=== PATIENT | female | born 1980 | race Caucasian/White ===

== ENCOUNTER 2020-12-15 09:49 | Outpatient (CLI) | payer BC, SELFPAY ==
--- NOTE | 2020-12-15 10:01 | FL_ITS ---
WS: [id number] ESOPHAGRAM WITH FLUOROSCOPY HISTORY: DYSPHAGIA COMPARISON: None available. FLUOROSCOPY TIME: 1.5 minutes. 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 Esophagus and swallowing function: Patient swallowed the barium mixture without difficulty. No strict ures or mucosal abnormalities are identified. Gastroesophageal reflux: Moderate to the mukund. Hiatal hernia: Small reducible. FL/FL barium swallow [id number] IMPRESSION: 1. Small reducible hiatal hernia. 2. Moderate amount of gastroesophageal reflux to the mukund. 3. No strictures in the esophagus.
== END 2020-12-15 09:50 | disposition home or self-care (01) ==
LOC: RAD 09:55
PROVIDERS: Visit Provider Family Medicine
DX: R13.10 Dysphagia, unspecified (principal); K44.9 Diaphragmatic hernia without obstruction or gangrene; K21.9 Gastro-esophageal reflux disease without esophagitis
CPT/HCPCS: 74220

== ENCOUNTER → 2021-03-09 13:10 | Outpatient (BNVA) | payer BC, SELFPAY | PROVIDERS: PCP Family Medicine; Visit Provider Internal Medicine | DX: R76.8 Other specified abnormal immunological findings in serum (principal); M54.5 Low back pain; M35.00 Sjogren syndrome, unspecified; R53.1 Weakness; R21 Rash and other nonspecific skin eruption; Z11.59 Encounter for screening for other viral diseases | CPT/HCPCS: 99204 ==

== ENCOUNTER 2021-03-26 11:32 | Outpatient (CLI) | payer BC, SELFPAY ==
--- NOTE | 2021-03-26 11:41 | XR_ITS ---
WS: [id number] RIGHT HAND: 2 VIEW(S) TECHNIQUE: PA and lateral. HISTORY: R76.8 - Other specified abnormal immunological findings, chronic pain. COMPARISON: None available. No acute fracture or dislocation. No soft tissue or bone abnormality. XR/XR hand RT 2V [id number] IMPRESSION: Normal RIGHT hand.
--- NOTE | 2021-03-26 11:41 | XR_ITS ---
WS: [id number] LUMBAR SPINE: 3 VIEWS TECHNIQUE: AP, lateral and L5-S1 spot. HISTORY: R76.8 - Other specified abnormal immunological findings COMPARISON: None available. Lumbar vertebra are normally aligned. No loss of disc space or vertebral body height. Mild facet joint arthritis at L4-5 and L5-S1. Pedicle s are all identified. SI joints are symmetric bilaterally. No soft tissue abnormalities. Prior cholecystectomy. XR/XR lumbar spine 2-3V* [id number] IMPRESSION: Mild facet joint arthritis at L4-5 and L5-S1.
--- NOTE | 2021-03-26 11:41 | XR_ITS ---
WS: [id number] SACROILIAC JOINTS TECHNIQUE: AP and oblique imaging is submitted. HISTORY: L40.9 - Psoriasis, unspecified COMPARISON: None available. Normal appearance of the SI joints with no sclerosis or erosions. No bone destruction. No soft tissue abnormality. XR/XR sacroiliac jts m 3V [id number] IMPRESSION: Normal SI joints.
--- NOTE | 2021-03-26 11:41 | XR_ITS ---
WS: [id number] LEFT HAND: 2 VIEW(S) TECHNIQUE: PA and lateral. HISTORY: R76.8 - Other specified abnormal immunological findings COMPARISON: None available. No acute fracture or dislocation. No soft tissue or bone abnormality. XR/XR hand LT 2V [id number] IMPRESSION: Normal LEFT hand.
[2021-03-26 12:52] LABS: Add Urine Microscopic? NO; Charge for UA Resulting for Rev
[2021-03-26 13:11] LABS: Bilirubin Urine Neg (Negative); Blood Urine Neg (Negative); Glucose Urine UA Norm (Normal); Ketones Urine Negative (Negative); Leukocyte Esterase Urine Negative (Negative); Nitrate Urine Negative (Negative); Protein Urine Neg (Negative); Urine Appearance Clear (CLEAR); Urine Color Straw (Yellow); Urobilinogen Urine Neg (Negative); pH Urine 5 (5-7)
[2021-03-26 13:39] LABS: Ferritin 94 ng/mL (15-150); Magnesium 1.9 mg/dL (1.7-2.3)
[2021-03-26 14:03] LABS: Hepatitis B Core AB, Total Non-Reactive (Nonreactive); Hepatitis B Surface Antigen Non-Reactive (Nonreactive); Hepatitis C Virus Antibody Non-Reactive (Nonreactive)
[2021-03-27 11:07] LABS: COMPLEMENT, TOTAL (CH50) >60 U/mL (31-60)
[2021-03-27 11:33] LABS: COMPLEMENT COMPONENT C3C 163 mg/dL (83-193); COMPLEMENT COMPONENT C4C 20 mg/dL (15-57)
[2021-03-27 12:57] LABS: CENTROMERE B ANTIBODY <1.0 NEG AI (<1.0 NEG); JO-1 ANTIBODY <1.0 NEG AI (<1.0 NEG); RNP ANTIBODY <1.0 NEG AI (<1.0 NEG); SCL-70 ANTIBODY <1.0 NEG AI (<1.0 NEG); SJOGREN'S ANTIBODY (SS-A) <1.0 NEG AI (<1.0 NEG); SM ANTIBODY <1.0 NEG AI (<1.0 NEG); SS-B <1.0 NEG AI (<1.0 NEG)
[2021-03-27 14:07] LABS: Lymes IGG WB <0.90 index
[2021-03-27 14:17] LABS: Cyclic Citrullinated Peptide <16 UNITS
[2021-03-30 14:58] LABS: THYROID PEROXIDASE ANTIBODIES 1 IU/mL (<9)
[2021-03-31 15:37] LABS: Tissue Transglutaminase IgA Ab <1 U/mL; Tissue transglutaminase Ab.IgG <1 U/mL
[2021-03-31 15:47] LABS: ANA SCREEN, IFA POSITIVE (NEGATIVE)
[2021-03-31 15:52] LABS: ANA PATTERN Nuclear, Homogeneous
[2021-04-02 15:52] LABS: Gliadin Ab.IgA 3 U (<20); Gliadin Ab.IgG 3 U (<20)
[2021-04-02 23:08] LABS: Immunoglobulin A 102 mg/dL (47-310)
[2021-04-03 08:58] LABS: DNA AB (DS) CRITHIDIA,IFA NEGATIVE (NEGATIVE)
== END 2021-03-26 11:33 | disposition home or self-care (01) ==
PROVIDERS: PCP Family Medicine; Visit Provider Internal Medicine
DX: L40.9 Psoriasis, unspecified (principal); R76.8 Other specified abnormal immunological findings in serum; Z11.59 Encounter for screening for other viral diseases
CPT/HCPCS: 72100; 72202; 73120; 81003; 82728; 82784; 83516; 83735; 86160; 86162; 86235; 86255; 86376; 86617; 86704; 86803; 87340

== ENCOUNTER → 2021-07-08 13:05 | Outpatient (BNVA) | payer BC, SELFPAY | PROVIDERS: PCP Family Medicine; Visit Provider Internal Medicine | DX: R76.8 Other specified abnormal immunological findings in serum (principal); R53.1 Weakness; M25.50 Pain in unspecified joint; M54.50 Low back pain, unspecified; M54.2 Cervicalgia; R41.89 Other symptoms and signs involving cognitive functions and awareness | CPT/HCPCS: 99214 ==

== ENCOUNTER 2021-07-08 13:57 | Outpatient (CLI) | payer BC, SELFPAY ==
--- NOTE | 2021-07-08 14:04 | XR_ITS ---
WS: [id number] LATERAL CERVICAL SPINE: 3 view. Lateral radiographs are performed in upright neutral, flexion and extension to the patient's toleranc e. HISTORY: M54.2 - Cervicalgia COMPARISON: None available. Normal posterior cervical alignment. Posterior vertebral bodies are normally aligned. No instability with flexion or extension. Disc spaces are maintained. No soft tissue abnormality. XR/XR cervical spine fl/ex [id number] IMPRESSION: Normal cervical alignment with no instability.
== END 2021-07-08 13:58 | disposition home or self-care (01) ==
PROVIDERS: PCP Family Medicine; Visit Provider Internal Medicine
DX: M25.50 Pain in unspecified joint (principal); M54.2 Cervicalgia
CPT/HCPCS: 72040

== ENCOUNTER → 2021-11-05 09:57 | Outpatient (BNVA) | payer BC, SELFPAY | PROVIDERS: PCP Family Medicine; Visit Provider Internal Medicine | DX: M25.50 Pain in unspecified joint (principal); M35.00 Sjogren syndrome, unspecified; R76.8 Other specified abnormal immunological findings in serum; Z79.899 Other long term (current) drug therapy | CPT/HCPCS: 80053; 85025; 86140 ==

== ENCOUNTER 2021-12-02 07:35 | Outpatient (CLI) | payer BC, SELFPAY ==
--- NOTE | 2021-12-02 08:45 | MR_ITS ---
WS: [id number] MRI HEAD WITHOUT CONTRAST TECHNIQUE: Sagittal T1, T2 axial, T2 axial FLAIR, axial and coronal T1 images, axial susceptibility w eighted imaging, axial diffusion weighted images, and coronal T2 images were obtained. CLINICAL INFORMATION: G43.711 - Chronic migraine without aura, intractable, wit... COMPARISON: None. FINDINGS: No evidence of restricted diffusion to suggest acute ischemia. Ventricular system and basal cisterns are patent. Normal goldberg-white differentiation. No suspicious intracranial signal abnormalities. Yeimi l posterior fossa. Normal vascular flow voids at the skull base. No extra-axial fluid collections. No evidence of mass or mass effect. Paranasal sinuses and mastoid air cells are well aerated. No hemosiderin on susceptibly weighted images. Normal optic chiasm and pituitary infundibulum. Tempor al lobes and hippocampal formations are normal in appearance. Normal cavernous sinuses and Meckel's c ave. MR/MR head wo con* [id number] IMPRESSION: 1. No evidence of restricted diffusion to suggest acute ischemia. 2. Normal goldberg-white differentiation. No suspicious intracranial signal abnorm alities. 3. Normal posterior fossa. 4. Paranasal sinuses and mastoid air cells well aerated. 5. No hemosiderin on susceptibly weighted images. 6. No other significant findings.
== END 2021-12-02 07:36 | disposition home or self-care (01) ==
LOC: RAD 07:37
PROVIDERS: PCP Family Medicine; Visit Provider Specialist
DX: G43.711 Chronic migraine without aura, intractable, with status migrainosus (principal)
CPT/HCPCS: 70551

== ENCOUNTER → 2021-12-25 15:22 | Outpatient (BNVA) | payer BC, SELFPAY | PROVIDERS: PCP Family Medicine; Visit Provider Family Medicine | DX: M79.602 Pain in left arm (principal) | CPT/HCPCS: 73060 ==

== ENCOUNTER 2022-01-13 14:16 | Outpatient (CLI) | payer BC, SELFPAY ==
--- NOTE | 2022-01-13 14:23 | MR_ITS ---
WS: [id number] MRI LEFT humerus, noncontrast. HISTORY: Pain. Multiplanar, multisequence imaging is performed of the LEFT humerus. No fracture or marrow edema is identified. The soft tissues and muscles of the humerus are unremarkab le. There is no edema or atrophy. The cortex is symmetric without thinning or abnormal signal. No mus harry edema. There is mild AC joint arthritis. Biceps tendon remains normally positioned in the bicipit al groove. MR/MR humerus LT wo con* [id number] IMPRESSION: Negative MRI LEFT humerus. No soft tissue or bone abnormality is identified.
== END 2022-01-13 14:17 | disposition home or self-care (01) ==
PROVIDERS: PCP Family Medicine; Visit Provider Family Medicine
DX: M79.622 Pain in left upper arm (principal)
CPT/HCPCS: 73218

== ENCOUNTER → 2022-02-25 11:53 | Outpatient (BNVA) | payer BC, SELFPAY | PROVIDERS: PCP Family Medicine; Visit Provider Internal Medicine | DX: R53.1 Weakness (principal); R76.8 Other specified abnormal immunological findings in serum | CPT/HCPCS: 80053; 85025; 85651; 86140 ==

== ENCOUNTER → 2022-08-31 09:13 | Outpatient (BNVA) | payer OTHER, SELFPAY | PROVIDERS: PCP Family Medicine; Visit Provider Internal Medicine | DX: R21 Rash and other nonspecific skin eruption (principal); R53.1 Weakness; R76.8 Other specified abnormal immunological findings in serum; M25.50 Pain in unspecified joint | CPT/HCPCS: 80053; 83735; 84100; 84550; 85025; 85651; 86140 ==

== ENCOUNTER → 2022-11-16 16:19 | Outpatient (BNVA) | payer OTHER, SELFPAY | PROVIDERS: PCP Family Medicine; Visit Provider Internal Medicine | DX: M25.50 Pain in unspecified joint (principal) | CPT/HCPCS: 36415; 80053; 81001; 82550; 83540; 83735; 84100; 84443; 85025; 85651; 86140; 86480 ==

== ENCOUNTER 2024-07-16 11:52 | Outpatient (CLI) | payer OTHER, SELFPAY ==
--- NOTE | 2024-07-16 11:55 | USCV_ITS ---
Beena Seaman Age: 44 Gender: F : 1980 Exam Date: 07/16/2024 12:00 Ordering Phys: Radha Cui APN Technologist: CT Exam Location: [facility] [place]_ Indication: BP: 130 / 80 HR: 81 Rhythm: Sinus Technical Quality: MEASUREMENTS (Male / Female) Normal Values 2D ECHO LVOT Diameter 2.1 cm LV Ejection Fraction MOD 4C 63.3 % LV Ejection Fraction MOD 2C 51.8 % LV Ejection Fraction 2C AL 52.4 % LA Diameter 3.6 cm RA Systolic Volume 4C AL 25.2 ml RA Systolic Volume 4C MOD 24.4 ml LA Sys Volume AL 31.2 cm cubed LA Sys Volume Index AL 12.7 cm cubed/m squared Aorta at Sinotubular Diameter 2.0 cm IVC Diameter 2.0 cm M-MODE LA Ao Ratio MM 1.9 AV Cusp Separation MM 1.8 cm DOPPLER AV Peak Velocity 157.0 cm/s LVOT Peak Velocity 132.0 cm/s AV Area Cont Eq vti 3.3 cm squared AV Area Cont Eq pk 2.8 cm squared MV Peak Velocity 124.0 cm/s MV Area PHT 3.6 cm squared Mitral E to A Ratio 1.4 TR Peak Velocity 242.0 cm/s TR Peak Gradient 23.4 mmHg TR Mean Velocity 199.0 cm/s TR Mean Gradient 17.1 mmHg TR Velocity Time Integral 59.6 cm TV Peak E Velocity 87.0 cm/s PV Peak Velocity 115.0 cm/s FINDINGS Left Ventricle Normal left ventricular size and systolic function, EF 63%.. No regional wall motion abnormalities. Right Ventricle The right ventricle is normal in size and function. Right Atrium The right atrium is normal in size. Left Atrium The left atrium is normal in size. Mitral Valve Trace mitral valve regurgitation. Aortic Valve No gross abnormalities noted Tricuspid Valve Trace tricuspid valve regurgitation. Estimated pulmonary artery peak systolic pressure within normal limits Pulmonic Valve Trace pulmonary valve regurgitation. Pericardium No pericardial effusion. Aorta Normal ascending aorta dimension. IVC The inferior vena cava appears normal. CONCLUSIONS Normal left ventricular size and systolic function, EF 63%.. No regional wall motion abnormalities. Trace tricuspid valve regurgitation. Estimated pulmonary artery peak systolic pressure within normal limits. Trace pulmonary valve regurgitation. There is no pericardial effusion. There are no intracardiac masses. No similar previous studies are available for comparison Dr Bran Solares MD FACC (Electronically Signed) Final Date: 16 July 2024 21:05 S
== END 2024-07-16 11:53 | disposition home or self-care (01) ==
LOC: RAD 11:53
DX: R06.02 Shortness of breath (principal); R53.83 Other fatigue; E66.01 Morbid (severe) obesity due to excess calories; F41.9 Anxiety disorder, unspecified; G47.8 Other sleep disorders; I75.023 Atheroembolism of bilateral lower extremities
CPT/HCPCS: 93306